=== PATIENT | female | born 1980 | race Caucasian/White ===

== ENCOUNTER 2018-08-18 20:28 | Emergency (ER) | payer MEDICAID ==
[~2018-08-18] VITALS: Ht 157.5 cm; Wt 57.6 kg
[2018-08-18 21:00] VITALS: Ht 157.5 cm; Wt 57.6 kg
[2018-08-19 01:09] VITALS: BP 131/68
== END 2018-08-19 01:09 | disposition home or self-care (01) ==
LOC: ED 20:28
DX: S06.0X0A Concussion without loss of consciousness, initial encounter (principal); E03.9 Hypothyroidism, unspecified; W22.8XXA Striking against or struck by other objects, initial encounter; Y93.9 Activity, unspecified; Y92.89 Other specified places as the place of occurrence of the external cause; Y99.8 Other external cause status
CPT/HCPCS: Q0162